=== PATIENT | male | born 1955 | race African-American/Black ===

== ENCOUNTER 2020-01-04 21:03 | Inpatient (IN) ==
[2020-01-04] MEDS ORDERED: ONDANSETRON 4 MG/2 ML VIAL IV STA (21:53)
[2020-01-04] MEDS ORDERED: MORPHINE 4 MG/1 ML VIAL IV STA (21:53)
[2020-01-04] MEDS ORDERED: SODIUM CHLORIDE 0.9% 500 ML IV STA (21:53)
[2020-01-04] MEDS ORDERED: ASPIRIN 325 MG TABLET PO STA (21:53)
[2020-01-04 22:17] LABS: Basophils % 0.3 % (0.0-0.8); Eosinophils % 0.7 % (0.00-10.9); Hematocrit 35.9 VOL% (42.0-52.0); Hemoglobin 12.6 GM/DL (14.0-18.0); Immature Granulocytes % 6.2 %; Immature Granulocytes Absolute 0.37 #; Lymphocytes # 0.5 10*3/uL (1.4-4.0); Lymphocytes % 7.7 % (21.2-54.2); Mean Corpuscular HGB Conc 35.1 GM/DL (32-36); Mean Corpuscular Volume 78.6 FL (87-102); Mean Platelet Volume 9.3 FL (9.6-12.0); Monocytes % 7.7 % (1.7-12.7); Neutrophils % 77.4 % (38.7-73.9); Platelet Count 183 T/CUMM (130-400); Red Blood Count 4.57 MC/CUMM (3.8-5.5); Red Cell Distribution Width 17.2 % (9.3-17.3); White Blood Count 5.9 T/CUMM (4-12)
[2020-01-04 22:25] LABS: INR 1.1; PT Patient Result 11.3 SECS (9.8-11.9)
[2020-01-04 22:42] LABS: Bilirubin,Total 0.6 MG/DL (0.2-1.0); Calcium 8.9 MG/DL (8.5-10.1); Osmolality,Calculated 255.5 MOS/KG (273-304); Total Protein 6.6 G/DL (6.4-8.3)
[2020-01-04 23:08] LABS: Apearance,Urine CLOUDY (Clear); Bilirubin,Urine Negative (Negative); Blood, Urine Small mg/dL (Negative); Glucose,Urine (UA) Negative (Negative); Hyaline Casts,Urine 18 /LPF (0-3); Ketones,Urine Negative (Negative); Mucus,Urine Occasional /LPF (Occasional); Nitrite,Urine Negative (Negative); Protein,Urine Negative; RBC,Urine 3 /HPF (0-4); Renal Epithelial Cells,Urine Occasional /HPF (<1); Squamous Epithelial Cell,Urine Occasional /HPF (0-10); Urine Color Yellow (Yellow); Urine Specific Gravity 1.011 (1.001-1.035); Urine Urobilinogen < 2.0 EU/DL (0.2-1.0); WBC,Urine 76 /HPF (0-6)
[2020-01-05] MEDS ORDERED: GLUCAGON 1 MG VIAL IM PRN (00:53)
[2020-01-05] MEDS ORDERED: DEXTROSE 50% 25 GM/50 ML VIAL IV PRN (00:53)
[2020-01-05] MEDS ORDERED: ONDANSETRON 4 MG/2 ML VIAL IV PRN (00:53)
[2020-01-05 01:45] LABS: Total Cells Counted 0
[2020-01-05 01:47] LABS: Calcium 9.1 MG/DL (8.5-10.1); Osmolality,Calculated 249.6 MOS/KG (273-304)
[2020-01-05] MEDS: MORPHINE 4 MG/1 ML VIAL IV PRN ×2 (03:18→21:04)
[2020-01-05] MEDS: PIPERACILLIN/TAZOBACTAM 3,375 MG in SODIUM CHLORIDE 0.9% 100 ML IV SCH ×3 (03:19→17:50)
[2020-01-05] MEDS: SODIUM CHLORIDE 0.9% 1,000 ML IV SCH ×2 (03:19→20:08)
[2020-01-05 05:07] LABS: Basophils % 0.2 % (0.0-0.8); Eosinophils % 0.5 % (0.00-10.9); Hematocrit 33.8 VOL% (42.0-52.0); Hemoglobin 11.4 GM/DL (14.0-18.0); Immature Granulocytes % 4.6 %; Immature Granulocytes Absolute 0.27 #; Lymphocytes # 0.4 10*3/uL (1.4-4.0); Lymphocytes % 6.4 % (21.2-54.2); Mean Corpuscular HGB Conc 33.7 GM/DL (32-36); Mean Corpuscular Volume 81.1 FL (87-102); Mean Platelet Volume 9.4 FL (9.6-12.0); Monocytes % 6.9 % (1.7-12.7); Neutrophils % 81.4 % (38.7-73.9); Platelet Count 174 T/CUMM (130-400); Red Blood Count 4.17 MC/CUMM (3.8-5.5); Red Cell Distribution Width 17.2 % (9.3-17.3); White Blood Count 5.8 T/CUMM (4-12)
[2020-01-05 05:47] LABS: Band Neutrophils 1 % (0-10); Eosinophils 2 % (0-10); Hypochromasia Slight; Lymphocytes 10 % (20-55); Myelocytes 1 %; Ovalocytes Slight; Platelet Estimate Adequate; Segmented Neutrophils 78 % (50-85); Total Cells Counted 100
[2020-01-05] MEDS: ENOXAPARIN 40 MG/0.4 ML SYRINGE SUBCUT SCH (08:52)
[2020-01-05] MEDS: amLODIPine 10 MG TABLET PO SCH (08:52)
[2020-01-05] MEDS: allopurinoL 300 MG TABLET PO SCH (08:52)
[2020-01-05] MEDS ORDERED: MIDAZOLAM 2 MG/2 ML VIAL ONE (15:22)
[2020-01-05] MEDS ORDERED: fentaNYL 100 MCG/2 ML VIAL ONE (15:22)
[2020-01-05] MEDS ORDERED: LIDOCAINE 1% 20 ML VIAL ONE (15:22)
[2020-01-05] MEDS: ATORVASTATIN 20 MG TABLET PO SCH (21:05)
[2020-01-06] MEDS: PIPERACILLIN/TAZOBACTAM 3,375 MG in SODIUM CHLORIDE 0.9% 100 ML IV SCH ×3 (01:22→17:10)
[2020-01-06 05:56] LABS: Eosinophils % 0.5 % (0.00-10.9); Hematocrit 29.2 VOL% (42.0-52.0); Hemoglobin 10.1 GM/DL (14.0-18.0); Immature Granulocytes % 5.5 %; Immature Granulocytes Absolute 0.22 #; Lymphocytes # 0.3 10*3/uL (1.4-4.0); Lymphocytes % 6.5 % (21.2-54.2); Mean Corpuscular HGB Conc 34.6 GM/DL (32-36); Mean Corpuscular Volume 80.4 FL (87-102); Mean Platelet Volume 9.5 FL (9.6-12.0); Monocytes % 5.8 % (1.7-12.7); Neutrophils % 81.7 % (38.7-73.9); Platelet Count 140 T/CUMM (130-400); Red Blood Count 3.63 MC/CUMM (3.8-5.5); Red Cell Distribution Width 16.9 % (9.3-17.3)
[2020-01-06 06:24] LABS: Eosinophils 1 % (0-10); Lymphocytes 3 % (20-55); Segmented Neutrophils 88 % (50-85); Total Cells Counted 100
[2020-01-06 06:25] LABS: Hypochromasia 1+
[2020-01-06 06:31] LABS: Calcium 8.5 MG/DL (8.5-10.1); Osmolality,Calculated 253.9 MOS/KG (273-304)
[2020-01-06] MEDS: allopurinoL 300 MG TABLET PO SCH (09:01)
[2020-01-06] MEDS: amLODIPine 10 MG TABLET PO SCH (09:01)
[2020-01-06] MEDS: SODIUM CHLORIDE 0.9% 1,000 ML IV SCH ×2 (09:01→21:11)
[2020-01-06] MEDS ORDERED: GLUCAGON 1 MG VIAL IM PRN (09:01)
[2020-01-06] MEDS ORDERED: DEXTROSE 50% 25 GM/50 ML VIAL IV PRN (09:01)
[2020-01-06] MEDS: ENOXAPARIN 40 MG/0.4 ML SYRINGE SUBCUT SCH (09:01)
[2020-01-06] MEDS: INSULIN REGULAR 100 UNIT/ML SUBCUT SCH ×3 (14:58→21:12)
[2020-01-06] MEDS: ATORVASTATIN 20 MG TABLET PO SCH (21:13)
[2020-01-06] MEDS: GABAPENTIN 300 MG CAPSULE PO SCH (21:13)
[2020-01-07] MEDS: PIPERACILLIN/TAZOBACTAM 3,375 MG in SODIUM CHLORIDE 0.9% 100 ML IV SCH (01:11)
[2020-01-07 06:11] LABS: Basophils % 0.2 % (0.0-0.8); Eosinophils % 0.2 % (0.00-10.9); Hematocrit 28.4 VOL% (42.0-52.0); Hemoglobin 9.6 GM/DL (14.0-18.0); Immature Granulocytes % 6.4 %; Immature Granulocytes Absolute 0.31 #; Lymphocytes # 0.2 10*3/uL (1.4-4.0); Lymphocytes % 4.3 % (21.2-54.2); Mean Corpuscular HGB Conc 33.8 GM/DL (32-36); Mean Corpuscular Volume 80.9 FL (87-102); Mean Platelet Volume 8.7 FL (9.6-12.0); Monocytes % 6.4 % (1.7-12.7); Neutrophils % 82.5 % (38.7-73.9); Platelet Count 114 T/CUMM (130-400); Red Blood Count 3.51 MC/CUMM (3.8-5.5); Red Cell Distribution Width 17.4 % (9.3-17.3); White Blood Count 4.9 T/CUMM (4-12)
[2020-01-07 06:34] LABS: Band Neutrophils 2 % (0-10); Hypochromasia 1+; Lymphocytes 2 % (20-55); Platelet Estimate Decreased; Segmented Neutrophils 93 % (50-85); Total Cells Counted 100
[2020-01-07 06:45] LABS: % Iron Saturation 14.9 % (18-50); Calcium 8.6 MG/DL (8.5-10.1); Ferritin 1513.1 ng/ml (26-388); Osmolality,Calculated 253.9 MOS/KG (273-304)
[2020-01-07] MEDS ORDERED: MAGNESIUM SULF RIDER 4 GM in PREMIX 1 EACH IV PRN (07:28)
[2020-01-07] MEDS: INSULIN REGULAR 100 UNIT/ML SUBCUT SCH ×4 (07:42→20:41)
[2020-01-07] MEDS: ENOXAPARIN 40 MG/0.4 ML SYRINGE SUBCUT SCH (08:23)
[2020-01-07] MEDS: GABAPENTIN 300 MG CAPSULE PO SCH ×2 (08:24→20:41)
[2020-01-07] MEDS: allopurinoL 300 MG TABLET PO SCH (08:24)
[2020-01-07] MEDS: amLODIPine 10 MG TABLET PO SCH (08:24)
[2020-01-07] MEDS ORDERED: DEXTROSE 10% 250 ML BAG IV PRN (08:48)
[2020-01-07] MEDS ORDERED: GLUCAGON 1 MG VIAL IM PRN (08:48)
[2020-01-07] MEDS: FERROUS SULFATE 325 MG TABLET PO SCH ×2 (09:49→20:41)
[2020-01-07] MEDS: AMOXICILLIN/CLAV 875 MG TABLET PO SCH ×2 (09:49→20:41)
[2020-01-07] MEDS: MAGNESIUM SULF RIDER 2 GM in PREMIX 1 EACH IV PRN (10:53)
[2020-01-07] MEDS: SODIUM CHLORIDE 0.9% 1,000 ML IV SCH (14:55)
[2020-01-07 15:59] LABS: Calcium 8.7 MG/DL (8.5-10.1); Osmolality,Calculated 258.2 MOS/KG (273-304)
[2020-01-07] MEDS: ATORVASTATIN 20 MG TABLET PO SCH (20:41)
[2020-01-08 06:33] LABS: Basophils % 0.2 % (0.0-0.8); Eosinophils % 0.2 % (0.00-10.9); Hematocrit 26.9 VOL% (42.0-52.0); Hemoglobin 9.4 GM/DL (14.0-18.0); Immature Granulocytes % 5.9 %; Immature Granulocytes Absolute 0.25 #; Lymphocytes # 0.3 10*3/uL (1.4-4.0); Lymphocytes % 5.9 % (21.2-54.2); Mean Corpuscular HGB Conc 34.9 GM/DL (32-36); Mean Corpuscular Volume 79.4 FL (87-102); Mean Platelet Volume 10.1 FL (9.6-12.0); Monocytes % 7.8 % (1.7-12.7); Platelet Count 124 T/CUMM (130-400); Red Blood Count 3.39 MC/CUMM (3.8-5.5); Red Cell Distribution Width 17.3 % (9.3-17.3); White Blood Count 4.3 T/CUMM (4-12)
[2020-01-08 06:58] LABS: Calcium 8.6 MG/DL (8.5-10.1); Eosinophils 1 % (0-10); Hypochromasia 1+; Lymphocytes 8 % (20-55); Osmolality,Calculated 254.9 MOS/KG (273-304); Platelet Estimate Normal; Segmented Neutrophils 87 % (50-85); Total Cells Counted 100
[2020-01-08] MEDS: INSULIN REGULAR 100 UNIT/ML SUBCUT SCH ×4 (07:20→20:18)
[2020-01-08] MEDS: GABAPENTIN 300 MG CAPSULE PO SCH ×2 (09:55→20:18)
[2020-01-08] MEDS: ENOXAPARIN 40 MG/0.4 ML SYRINGE SUBCUT SCH (09:55)
[2020-01-08] MEDS: AMOXICILLIN/CLAV 875 MG TABLET PO SCH ×2 (09:55→20:18)
[2020-01-08] MEDS: amLODIPine 10 MG TABLET PO SCH (09:55)
[2020-01-08] MEDS: allopurinoL 300 MG TABLET PO SCH (09:55)
[2020-01-08] MEDS: FERROUS SULFATE 325 MG TABLET PO SCH ×2 (09:55→20:18)
[2020-01-08] MEDS ORDERED: BISACODYL 5 MG TABLET PO ONE (15:43)
[2020-01-08] MEDS: ATORVASTATIN 20 MG TABLET PO SCH (20:18)
[2020-01-08] MEDS: POLYETHYLENE GLYCOL POWDER 17 GM PACK PO SCH (20:19)
[2020-01-09 05:08] LABS: Basophils % 0.2 % (0.0-0.8); Eosinophils % 0.2 % (0.00-10.9); Hematocrit 26.9 VOL% (42.0-52.0); Hemoglobin 9.3 GM/DL (14.0-18.0); Immature Granulocytes % 5.7 %; Lymphocytes # 0.3 10*3/uL (1.4-4.0); Lymphocytes % 5.1 % (21.2-54.2); Mean Corpuscular HGB Conc 34.6 GM/DL (32-36); Mean Corpuscular Volume 80.1 FL (87-102); Mean Platelet Volume 9.3 FL (9.6-12.0); Monocytes % 8.5 % (1.7-12.7); Neutrophils % 80.3 % (38.7-73.9); Platelet Count 116 T/CUMM (130-400); Red Blood Count 3.36 MC/CUMM (3.8-5.5); Red Cell Distribution Width 17.5 % (9.3-17.3); White Blood Count 5.3 T/CUMM (4-12)
[2020-01-09 05:23] LABS: Calcium 8.6 MG/DL (8.5-10.1); Osmolality,Calculated 257.7 MOS/KG (273-304)
[2020-01-09 05:47] LABS: Band Neutrophils 6 % (0-10); Hypochromasia 1+; Lymphocytes 8 % (20-55); Microcytosis 1+; Myelocytes 3 %; Ovalocytes Slight; Segmented Neutrophils 79 % (50-85); Total Cells Counted 100
[2020-01-09] MEDS: INSULIN REGULAR 100 UNIT/ML SUBCUT SCH ×2 (08:38→11:50)
[2020-01-09] MEDS ORDERED: INSULIN GLARGINE 100 UNIT/ML SUBCUT SCH (09:00)
[2020-01-09] MEDS: POLYETHYLENE GLYCOL POWDER 17 GM PACK PO SCH (09:24)
[2020-01-09] MEDS: MAGNESIUM SULF RIDER 2 GM in PREMIX 1 EACH IV PRN (09:24)
[2020-01-09] MEDS: GABAPENTIN 300 MG CAPSULE PO SCH (09:25)
[2020-01-09] MEDS: FERROUS SULFATE 325 MG TABLET PO SCH (09:25)
[2020-01-09] MEDS: amLODIPine 10 MG TABLET PO SCH (09:25)
[2020-01-09] MEDS: AMOXICILLIN/CLAV 875 MG TABLET PO SCH (09:26)
[2020-01-09] MEDS: ENOXAPARIN 40 MG/0.4 ML SYRINGE SUBCUT SCH (09:26)
[2020-01-09] MEDS: allopurinoL 300 MG TABLET PO SCH (09:26)
[2020-01-09 11:04] VITALS: BP 110/52
== END 2020-01-09 15:15 | disposition home health service (06) | DRG 194 ==
LOC: N.ED 21:03 → N.EDINP 01-05 00:53 → SUATTDRO 01-05 00:53 → N.TELES 01-05 01:12 → N.4E 01-06 14:07
PROVIDERS: ADMIT Internal Medicine Geriatric Medicine; ATTEND Internal Medicine